=== PATIENT | male | born 1970 | race African-American/Black ===

== ENCOUNTER 2025-01-30 15:10 | Emergency (ER) | payer OTHER ==
[~2025-01-30] VITALS: Ht 180.3 cm; Wt 200.0 kg
[2025-01-30 16:03] VITALS: TEMP 97.5
[2025-01-30 16:05] VITALS: BP 145/77; PULSE 66; RESP 18; O2SAT 97
== END 2025-01-30 18:48 | disposition home or self-care (01) ==
LOC: EMS 15:30
DX: S09.90XA Unspecified injury of head, initial encounter (principal); I10 Essential (primary) hypertension; E78.00 Pure hypercholesterolemia, unspecified; X58.XXXA Exposure to other specified factors, initial encounter; Y93.89 Activity, other specified; Y92.89 Other specified places as the place of occurrence of the external cause; Y99.0 Civilian activity done for income or pay
CPT/HCPCS: 70450; 72125; 99284